=== PATIENT | female | born 1950 | race American Indian/Alaskan Native ===

== ENCOUNTER 2017-08-18 17:11 | Emergency (ER) | payer MEDICARE ==
--- NOTE | 2017-08-18 18:37 | Emergency Department Report ---
ED Shortness of Breath HPI - General Chief Complaint: Dyspnea/Respdistress Stated Complaint: FLU LIKE SYMPTOMS Time Seen by Provider: 08/18/17 18:33 Source: patient Mode of arrival: Ambulatory Limitations: No Limitations - History of Present Illness Initial Comments: Patient is a 66-year-old F [place] female with a history of atrial fibrillation diabetes hypertension who is presenting with flulike symptoms for the past 4 days. Patient states she has a productive cough with white sputum. Patient states her maximum temperature at home was 102 hours does not feel as though she has a fever today. Patient also is complaining of nasal congestion shortness of breath especially when she coughs and some very mild body aches. MD Complaint: shortness of breath, cough Severity: mild Pain Scale: 4 Quality: aching Associated Symptoms: fever, cough, sputum production - Related Data Previous Rx's Medication Instructions Recorded Last Taken Type Benzonatate [Tessalon Perle] 100 mg PO TID #12 capsule 08/18/17 Unknown Rx Doxycycline [Vibramycin] 100 mg PO Q12HR #14 capsule 08/18/17 Unknown Rx predniSONE [Deltasone] 20 mg PO QDAY #5 tab 08/18/17 Unknown Rx Allergies Allergy/AdvReac Type Severity Reaction Status Date / Time No Known Allergies Allergy Unverified 08/18/17 17:43 ED Review of Systems ROS: Stated complaint: FLU LIKE SYMPTOMS Other details as noted in HPI Comment: All other systems reviewed and negative ED Past Medical Hx - Past Medical History Previous Medical History?: Yes Hx Hypertension: Yes Hx Diabetes: Yes (borderline) Additional medical history: afib. elevated cholestrol - Surgical History Past Surgical History?: Yes Hx Cholecystectomy: Yes Additional Surgical History: hernia repair - Social History Smoking Status: Never Smoker Substance Use Type: None - Medications Home Medications: Home Medications Medication Instructions Recorded Confirmed Last Taken Type Benzonatate [Tessalon Perle] 100 mg PO TID #12 capsule 08/18/17 Unknown Rx Doxycycline [Vibramycin] 100 mg PO Q12HR #14 capsule 08/18/17 Unknown Rx predniSONE [Deltasone] 20 mg PO QDAY #5 tab 08/18/17 Unknown Rx ED Physical Exam - General Limitations: No Limitations General appearance: alert, in no apparent distress - Head Head exam: Present: atraumatic, normocephalic - Eye Eye exam: Present: normal appearance - ENT ENT exam: Present: mucous membranes moist - Neck Neck exam: Present: normal inspection - Respiratory Respiratory exam: Present: normal lung sounds bilaterally. Absent: respiratory distress, wheezes, rales, rhonchi - Cardiovascular Cardiovascular Exam: Present: tachycardia, irregular rhythm. Absent: systolic murmur, diastolic murmur, rubs, gallop - GI/Abdominal GI/Abdominal exam: Present: soft, normal bowel sounds. Absent: distended, tenderness, guarding - Extremities Exam Extremities exam: Present: normal inspection - Back Exam Back exam: Present: normal inspection - Neurological Exam Neurological exam: Present: alert, oriented X3 - Psychiatric Psychiatric exam: Present: normal affect, normal mood - Skin Skin exam: Present: warm, dry, intact, normal color. Absent: rash ED Course Vital Signs 08/18/17 08/18/17 08/18/17 17:43 18:32 18:59 Temperature 97.1 F L 97.6 F Pulse Rate 103 H 148 H Respiratory 20 26 H 28 H Rate Blood Pressure 160/91 Blood Pressure 131/86 [Right] O2 Sat by Pulse 98 94 94 Oximetry 08/18/17 08/18/17 19:51 19:57 Temperature 98.4 F 98.4 F Pulse Rate 87 Respiratory 20 Rate Blood Pressure Blood Pressure 122/77 [Right] O2 Sat by Pulse 97 Oximetry - Reevaluation(s) Reevaluation #1: 08/18/17 18:39 At the time of the history and physical patient's heart rate was 1 160s she was adamant that she take her own metoprolol. Patient states he brings it down immediately in the past and she would like to try this medication first before IV medications. Patient states that she usually takes half a pill because of a whole pill "will drop her pressure too low". I have instructed the patient that this will 5 we will watch her blood pressure for the next half hour and if it does not respond we may have to use IV medications. ED Medical Decision Making - Lab Data Result diagrams: 08/18/17 19:13 08/18/17 19:13 - EKG Data -: EKG Interpreted by Oh - EKG Data 08/18/17 18:40 EKG shows atrial fibrillation 136 axis is leftward inferior Q waves as well as septal Q waves present poor R-wave progression is no ST segment elevations or depressions time interpretations 1805 - Radiology Data Radiology results: report reviewed No obvious infiltrate seen patient does have some perihilar lymphadenopathy present there is nonspecific - Medical Decision Making Patient is a 66-year-old asthmatic female presenting with cough cold congestion for the past several days. Patient does have some small lymph nodes on x-ray but no obvious infiltrate however with the duration of her symptoms and the deep cough is presumed that she could have a small walking pneumonia versus acute bronchitis. Patient will be started on antibiotics and prednisone and will be discharged home. Patient's heart rate did improve with oral beta blockers Critical Care Time: Yes Critical care time in (mins) excluding proc time.: 30 Critical care attestation.: If time is entered above; I have spent that time in minutes in the direct care of this critically ill patient, excluding procedure time. ED Disposition Clinical Impression: Atrial fibrillation with RVR Acute bronchitis Qualifiers: Bronchitis organism: unspecified organism Qualified Code(s): J20.9 - Acute bronchitis, unspecified Disposition: DC-01 TO HOME OR SELFCARE Is pt being admited?: No Does the pt Need Aspirin: No Condition: Stable Instructions: Acute Bronchitis (ED) Prescriptions: Benzonatate [Tessalon Perle] 100 mg PO TID #12 capsule Doxycycline [Vibramycin] 100 mg PO Q12HR #14 capsule predniSONE [Deltasone] 20 mg PO QDAY #5 tab Referrals: MALDONADO QUINTANILLA MD [Staff Physician] - 3-5 Days
[2017-08-18] MEDS ORDERED: NACL 0.9% 1000 ML 1,000 ML IV ONE (18:41)
--- NOTE | 2017-08-18 19:21 | XRay Report ---
FINAL REPORT EXAM: XR CHEST 1V AP HISTORY: Dyspnea TECHNIQUE: Portable upright frontal chest x-ray Comparison: None FINDINGS: Low volume exam. Mild cardiomegaly. Elevated left hemidiaphragm. Left basilar atelectasis. Mild fullness of the bilateral jefferson with possible calcified lymph node. The right hilar contour and right paratracheal soft tissue density are obscured. Mass in this location cannot be excluded. No definite focal infiltrates. IMPRESSION: Elevated left hemidiaphragm. Possible bilateral hilar adenopathy. Recommend CT chest with IV contrast and larger inspiratory volume.
[2017-08-18 19:25] LABS: Basophils % (Auto) 0.8 % (0.0-1.8); Eosinophils % (Auto) 0.1 % (0.0-4.3); Hematocrit 47.3 % (30.3-42.9); Hemoglobin 15.5 gm/dl (10.1-14.3); Lymphocytes # (Auto) 0.9 K/mm3 (1.2-5.4); Mean Corpuscular HGB Conc 33 % (30-34); Mean Corpuscular Hemoglobin 30 pg (28-32); Mean Corpuscular Volume 92 fl (79-97); Monocytes # (Auto) 0.6 K/mm3 (0.0-0.8); Monocytes % (Auto) 14.2 % (0.0-7.3); Platelet Count 172 K/mm3 (140-440); Red Blood Count 5.17 M/mm3 (3.65-5.03); Red Cell Distribution Width 13.4 % (13.2-15.2)
[2017-08-18 19:34] LABS: INR 1.09 (0.87-1.13)
[2017-08-18 19:35] LABS: Partial Thromboplastin Time 30.9 Sec. (24.2-36.6)
[2017-08-18 20:16] LABS: BUN/Creatinine Ratio 19; Blood Urea Nitrogen 19 mg/dL (7-17); Calcium 8.2 mg/dL (8.4-10.2); Hemolysis Index 20
[2017-08-18] MEDS ORDERED: ZOFRAN IV ONE (20:44)
[2017-08-18] MEDS ORDERED: cefTRIAXone 1 GM in NACL 0.9% 20 ML IV ONE (21:00)
[2017-08-18 22:41] VITALS: BP 126/91
== END 2017-08-18 23:19 | disposition home or self-care (01) ==
LOC: ED 17:11
DX: J20.9 Acute bronchitis, unspecified (principal); I48.0 Paroxysmal atrial fibrillation; I10 Essential (primary) hypertension; E11.9 Type 2 diabetes mellitus without complications; E78.00 Pure hypercholesterolemia, unspecified
CPT/HCPCS: 36415; 71045; 80048; 85025; 85379; 85610; 85730; 93005; 93010; 96361; 96374; 96375; 99291; J0696; J2405; J7030